=== PATIENT | female | born 1990 | race Caucasian/White ===

== ENCOUNTER 2016-08-09 08:27 | Outpatient (CLI) | payer OTHER ==
[2016-08-09] MEDS ORDERED: BARIUM SULFATE 135 ML SUSP.RECON (E-Z-HD) PO ONE (09:05)
== END 2016-08-09 21:12 | disposition home or self-care (01) ==
LOC: SRD 08:27
DX: R10.9 Unspecified abdominal pain (principal)
CPT/HCPCS: 74245-TC

== ENCOUNTER 2016-08-14 11:32 | Outpatient (CLI) | payer OTHER ==
[2016-08-14 12:47] LABS: ALBUMIN 4.2 g/dL (3.4-4.8); CALCIUM 8.3 mg/dL (8.4-11.0); CREATININE 0.81 mg/dL (0.55-1.30); POTASSIUM 3.6 mmol/L (3.5-5.1); TOTAL BILIRUBIN 0.7 mg/dL (0.0-1.0); TOTAL PROTEIN, SERUM 7.8 g/dL (6.4-8.3)
[2016-08-14 12:49] LABS: BASOPHILS % (AUTO) 0.2 % (0.0-2.0); EOSINOPHILS % (AUTO) 0.4 % (0.0-4.0); HEMATOCRIT 38.7 % (36-48); HEMOGLOBIN 12.5 g/dL (12.0-16.0); LYMPHOCYTES # (AUTO) 1.6 K/uL (1.0-5.5); LYMPHOCYTES % (AUTO) 18.5 % (20.5-51.5); MEAN CORPUSCULAR HEMOGLOBIN 28 pg (27-31); MEAN CORPUSCULAR HGB CONC 32 % (32-36); MEAN CORPUSCULAR VOLUME 87 fL (79.0-98.0); MONOCYTES # (AUTO) 0.5 K/uL (0.0-1.0); MONOCYTES % (AUTO) 6.1 % (1.7-9.3); NEUTROPHILS # (AUTO) 6.6 K/uL (1.8-7.7); NEUTROPHILS % (AUTO) 74.8 % (40.0-70.0); PLATELET COUNT (AUTO) 233 K/uL (130-430); RED BLOOD CELL COUNT(AUTO) 4.45 MIL/uL (4.2-6.2); WHITE BLOOD COUNT (AUTO) 8.7 K/uL (4.8-10.8)
== END 2016-08-14 17:10 | disposition home or self-care (01) ==
LOC: SLB 11:32
DX: K58.2 Mixed irritable bowel syndrome (principal)
CPT/HCPCS: 36415; 80053; 82150-TC; 83690-TC; 85025

== ENCOUNTER 2016-08-15 07:53 | Outpatient (CLI) | payer OTHER | END 2016-08-15 18:25 | disposition home or self-care (01) | LOC: SLB 07:53 | DX: K58.2 Mixed irritable bowel syndrome (principal) | CPT/HCPCS: 36415; 87177; 87329 ==

== ENCOUNTER 2016-11-21 08:40 | Outpatient (CLI) | payer OTHER ==
[2016-11-21 09:27] LABS: BASOPHILS % (AUTO) 0.6 % (0.0-2.0); EOSINOPHILS # (AUTO) 0.1 K/uL (0.0-0.4); EOSINOPHILS % (AUTO) 2.8 % (0.0-4.0); HEMOGLOBIN 12.3 g/dL (12.0-16.0); LYMPHOCYTES # (AUTO) 1.6 K/uL (1.0-5.5); LYMPHOCYTES % (AUTO) 34.4 % (20.5-51.5); MEAN CORPUSCULAR HEMOGLOBIN 29 pg (27-31); MEAN CORPUSCULAR HGB CONC 33 % (32-36); MEAN CORPUSCULAR VOLUME 88 fL (79.0-98.0); MONOCYTES # (AUTO) 0.4 K/uL (0.0-1.0); MONOCYTES % (AUTO) 8.7 % (1.7-9.3); NEUTROPHILS # (AUTO) 2.5 K/uL (1.8-7.7); NEUTROPHILS % (AUTO) 53.5 % (40.0-70.0); PLATELET COUNT (AUTO) 262 K/uL (130-430); WHITE BLOOD COUNT (AUTO) 4.6 K/uL (4.8-10.8)
[2016-11-21 10:00] LABS: FREE T4 (FREE THYROXINE) 0.9 ng/dL (0.6-1.6)
[2016-11-21 10:01] LABS: ALBUMIN 3.7 g/dL (3.4-4.8); CREATININE 0.77 mg/dL (0.55-1.30); POTASSIUM 3.9 mmol/L (3.5-5.1); THYROID STIMULATING HORMONE 1.09 uIu/mL (0.34-4.82); TOTAL BILIRUBIN 0.4 mg/dL (0.0-1.0)
== END 2016-11-21 19:08 | disposition home or self-care (01) ==
LOC: SLB 08:40
DX: Z00.01 Encounter for general adult medical examination with abnormal findings (principal); R53.83 Other fatigue; R79.89 Other specified abnormal findings of blood chemistry
CPT/HCPCS: 36415; 80053; 80061; 84439; 84443-TC; 85025

== ENCOUNTER 2017-02-27 08:20 | Outpatient (CLI) | payer OTHER ==
[2017-02-27] MEDS ORDERED: DIATR MEGLU/DIATRIZ SOD 30 ML SOLUTION PO ONE (08:30)
[2017-02-27] MEDS ORDERED: IOHEXOL 100 ML IV ONE (09:54)
== END 2017-02-27 20:12 | disposition home or self-care (01) ==
LOC: SCT 08:20
DX: K58.9 Irritable bowel syndrome, unspecified (principal)
CPT/HCPCS: 74177; Q9964; Q9967

== ENCOUNTER 2017-04-10 09:18 | Outpatient (CLI) | payer OTHER ==
[2017-04-10 10:09] LABS: THYROID STIMULATING HORMONE 1.54 uIu/mL (0.36-3.74)
[2017-04-11 10:14] LABS: HEMOGLOBIN A1C 5.1 % (4.8-5.6)
== END 2017-04-10 20:11 | disposition home or self-care (01) ==
LOC: SLB 09:18
DX: R53.82 Chronic fatigue, unspecified (principal); R73.09 Other abnormal glucose
CPT/HCPCS: 36415; 80061; 82306; 82607; 83036; 84443-TC

== ENCOUNTER 2017-05-09 10:45 | Outpatient (CLI) | payer OTHER | END 2017-05-09 20:33 | disposition home or self-care (01) | LOC: SUS 10:45 | PROVIDERS: ATTEND Specialist | DX: R10.2 Pelvic and perineal pain (principal) | CPT/HCPCS: 76830-TC; 76857 ==

== ENCOUNTER 2017-07-09 09:54 | Outpatient (CLI) | payer OTHER | END 2017-07-09 20:52 | disposition home or self-care (01) | LOC: SUS 09:54 | PROVIDERS: ATTEND Specialist | DX: N94.6 Dysmenorrhea, unspecified (principal); R10.2 Pelvic and perineal pain | CPT/HCPCS: 76830-TC; 76857 ==